=== PATIENT | female | born 1960 | race Caucasian/White ===

== ENCOUNTER 2020-01-03 09:30 | Emergency (ER) | payer OTHER ==
--- NOTE | 2020-01-03 09:52 | ED Physician Documentation ---
PD HPI CHEST PAIN - Stated complaint Stated Complaint: SOA/LEG PX - Chief complaint Chief Complaint: Cardiac - History obtained from History obtained from: Patient - History of Present Illness Timing - onset: Other (59-year-old woman for the last 3 nights has had anterior pain of the right thigh up into the groin. Today it was a little more constant and worse. She started to get worried about it and on the way here developed some substernal chest tightness radiating towards the left breast as well as shortness of breath. No leg swelling. No history of DVT or PE or cardiac problems. No recent travel.) Review of Systems Ten Systems: 10 systems reviewed and negative Constitutional: denies: Fever, Chills Throat: denies: Sore throat Cardiac: reports: Chest pain / pressure. denies: Palpitations, Pedal edema, Calf pain (just thigh) Respiratory: reports: Dyspnea. denies: Cough PD PAST MEDICAL HISTORY - Past Medical History Past Medical History: No - Allergies Allergies/Adverse Reactions: Allergies Allergy/AdvReac Type Severity Reaction Status Date / Time Penicillins Allergy Anaphylaxis Verified 01/03/20 10:09 - Social History Does the pt smoke?: No - Family History Family history: reports: Non contributory PD ED PE NORMAL - Vitals Vital signs reviewed: Yes - General General: Alert and oriented X 3, No acute distress - HEENT HEENT: PERRL, EOMI - Neck Neck: Supple, no meningeal sign, No bony TTP - Cardiac Cardiac: RRR, No murmur - Respiratory Respiratory: No respiratory distress, Clear bilaterally - Abdomen Abdomen: Non tender - Back Back: No CVA TTP, No spinal TTP - Derm Derm: Normal color, Warm and dry - Extremities Extremities: No edema, No calf tenderness / cord, Other (Right lower extremity is visibly normal, symmetric, full range of motion at the hip and knee. No pedal edema.) - Neuro Neuro: Alert and oriented X 3, Normal speech Results - Vitals Vitals: Vital Signs - 24 hr 01/03/20 01/03/20 01/03/20 09:34 09:55 10:07 Temperature 36.6 C Heart Rate 98 78 80 Respiratory 22 16 14 Rate Blood Pressure 180/123 H 193/97 H 162/93 H O2 Saturation 100 100 100 01/03/20 01/03/20 10:30 11:00 Temperature Heart Rate 79 80 Respiratory 14 14 Rate Blood Pressure 140/100 H 168/91 H O2 Saturation 100 98 Oxygen O2 Source Room air - EKG (time done) 0943 Rate: Rate (enter#) (86) Rhythm: NSR [place]: Normal Intervals: Normal ME QRS: Normal Ischemia: Normal ST segments Computer interpretation: Agree with computer - Labs Labs: Laboratory Tests 01/03/20 01/03/20 01/03/20 09:50 09:50 09:50 WBC 6.7 RBC 5.44 H Hgb 15.4 Hct 45.9 MCV 84.4 MCH 28.3 MCHC 33.6 RDW 13.5 Plt Count 313 MPV 9.7 Neut # (Auto) 4.9 Lymph # (Auto) 1.1 L Stevens # (Auto) 0.5 Eos # (Auto) 0.2 Baso # (Auto) 0.1 Absolute Nucleated RBC 0.00 Nucleated RBC % 0.0 D-Dimer Sodium 139 Potassium 3.5 Chloride 102 Carbon Dioxide 27 Anion Gap 10.0 BUN 19 Creatinine 0.6 Estimated GFR (MDRD) 102 Glucose 102 H Calcium 9.2 Total Bilirubin 1.7 H AST 35 ALT 37 Alkaline Phosphatase 70 Troponin I High Sens 2.9 Total Protein 7.8 Albumin 4.7 Globulin 3.1 Albumin/Globulin Ratio 1.5 Lipase 41 01/03/20 09:50 WBC RBC Hgb Hct MCV MCH MCHC RDW Plt Count MPV Neut # (Auto) Lymph # (Auto) Stevens # (Auto) Eos # (Auto) Baso # (Auto) Absolute Nucleated RBC Nucleated RBC % D-Dimer 219.4 Sodium Potassium Chloride Carbon Dioxide Anion Gap BUN Creatinine Estimated GFR (MDRD) Glucose Calcium Total Bilirubin AST ALT Alkaline Phosphatase Troponin I High Sens Total Protein Albumin Globulin Albumin/Globulin Ratio Lipase PD MEDICAL DECISION MAKING - ED course ED course: The anterior leg pain is atypical for DVT, and ultrasound was done and negative. D-dimer was also negative. Seems more like muscular pain and then developed some anxiety when she started thinking about blood clot. The exam is normal, no evidence of infection in the leg. Departure - Departure Disposition: 01 Home, Self Care Clinical Impression: Right leg pain, Atypical chest pain Condition: Good Record reviewed to determine appropriate education?: Yes Instructions: ED Chest Pain Atypical Unkn Cause Comments: The main focus today was to make sure there was no evidence of heart disease or blood clots, there is evidence of neither. Both your d-dimer which is a screening blood test for blood clots and the ultrasound were negative. Also your cardiac work-up was negative with a normal high-sensitivity troponin and EKG. Call your doctor to arrange a follow-up appointment, make the next available appointment. In the interim, return anytime if worse or if new symptoms develop.
[2020-01-03 10:00] LABS: BASOPHILS # (AUTO) 0.1 10^3/uL (0.0-0.1); BASOPHILS % (AUTO) 0.7 %; EOSINOPHILS # (AUTO) 0.2 10^3/uL (0.0-0.7); EOSINOPHILS % (AUTO) 2.4 %; HGB - HEMOGLOBIN 15.4 g/dL (12.0-16.0); LYMPHOCYTES # (AUTO) 1.1 10^3/uL (1.5-3.5); LYMPHOCYTES % (AUTO) 16.1 %; MEAN CORPUSCULAR HEMOGLOBIN 28.3 pg (27.0-31.0); MEAN CORPUSCULAR HGB CONC 33.6 g/dL (32.0-36.0); MEAN CORPUSCULAR VOLUME 84.4 fL (81.0-99.0); MEAN PLATELET VOLUME 9.7 fL (7.9-10.8); MONOCYTES # (AUTO) 0.5 10^3/uL (0.0-1.0); MONOCYTES % (AUTO) 7.9 %; NEUTROPHILS # (AUTO) 4.9 10^3/uL (1.5-6.6); NEUTROPHILS % (AUTO) 72.6 %; PLT - PLATELET COUNT 313 10^3/uL (130-450); RED BLOOD COUNT 5.44 10^6/uL (4.20-5.40); RED CELL DISTRIBUTION WIDTH 13.5 % (12.0-15.0); WHITE BLOOD COUNT 6.7 x10^3/uL (4.8-10.8)
--- NOTE | 2020-01-03 10:10 | XRAY Report ---
Reason: chest pain Procedure Date: 01/03/2020 Accession Number: [id number] / [id number] Procedure: XR - Chest 1 View X-Ray CPT Code: 01547 Final Report FULL RESULT: EXAM: CHEST RADIOGRAPHY EXAM DATE: 01/03/2020 10:01 AM. CLINICAL HISTORY: Chest pain and dyspnea. COMPARISON: None. TECHNIQUE: 1 view. FINDINGS: Lungs/Pleura: No focal opacities evident. No pleural effusion. No pneumothorax. Mediastinum: Within exam limitations, the cardiomediastinal contour is normal. Other: None. IMPRESSION: Normal single view chest. RADIA
[2020-01-03 10:21] LABS: ALBUMIN 4.7 g/dL (3.2-5.5); ALBUMIN/GLOBULIN RATIO 1.5 (1.0-2.2); BILIRUBIN,TOTAL 1.7 mg/dL (0.2-1.0); CALCIUM 9.2 mg/dL (8.5-10.3); CREATININE 0.6 mg/dL (0.4-1.0); TOTAL PROTEIN 7.8 g/dL (6.7-8.2)
[2020-01-03 11:04] VITALS: BP 168/91
--- NOTE | 2020-01-03 11:28 | Ultrasound Report ---
Reason: rle pain Procedure Date: 01/03/2020 Accession Number: [id number] / [id number] Procedure: US - Duplex Ext Veins Right CPT Code: Final Report FULL RESULT: EXAM: RIGHT LOWER EXTREMITY VENOUS ULTRASOUND EXAM DATE: 01/03/2020 11:11 AM. CLINICAL HISTORY: Rle pain. COMPARISON: None. TECHNIQUE: Real-time sonographic vascular imaging was performed by the satellite communications operator through the lower extremity utilizing both color-flow and Doppler spectral analysis. Multiple registered representative static images were saved for review. FINDINGS: Common Femoral Vein (CFV): Normal. CFV-GSV Junction: Normal. Profunda Femoral Vein (PFV): Normal. Femoral Vein (FV) Prox: Normal. Femoral Vein (FV) Mid: Normal. Femoral Vein (FV) Dist: Normal. Popliteal Vein: Normal. Posterior Tibial Veins: Normal. Peroneal Veins: Normal. Contralateral Side CFV: Normal. Other: None. IMPRESSION: No evidence for deep venous thrombosis. RADIA
== END 2020-01-03 11:22 | disposition home or self-care (01) ==
LOC: ED 09:30
DX: M79.651 Pain in right thigh (principal); R07.89 Other chest pain
CPT/HCPCS: 36415; 71045; 80053; 83690; 84484; 85025; 85379; 93005; 99284

== ENCOUNTER 2024-04-28 12:42 | Emergency (ER) | payer MEDICARE, OTHER ==
[2024-04-28 13:16] LABS: BASOPHILS % (AUTO) 0.5 %; EOSINOPHILS % (AUTO) 0.3 %; LYMPHOCYTES # (AUTO) 0.4 10^3/uL (1.5-3.5); LYMPHOCYTES % (AUTO) 5.9 %; MEAN CORPUSCULAR HEMOGLOBIN 28.1 pg (27.0-31.0); MEAN CORPUSCULAR HGB CONC 33.3 g/dL (32.0-36.0); MEAN CORPUSCULAR VOLUME 84.2 fL (81.0-99.0); MONOCYTES # (AUTO) 0.8 10^3/uL (0.0-1.0); MONOCYTES % (AUTO) 11.1 %; NEUTROPHILS % (AUTO) 82.1 %; PLT - PLATELET COUNT 285 10^3/uL (130-450); RED BLOOD COUNT 4.63 10^6/uL (4.20-5.40); RED CELL DISTRIBUTION WIDTH 13.2 % (12.0-15.0); WHITE BLOOD COUNT 7.3 x10^3/uL (4.8-10.8)
[2024-04-28 13:31] LABS: ALBUMIN 3.9 g/dL (3.2-5.5); ALBUMIN/GLOBULIN RATIO 1.3 (1.0-2.2); BILIRUBIN,TOTAL 1.6 mg/dL (0.2-1.0); CALCIUM 9.2 mg/dL (8.5-10.3); CREATININE 0.7 mg/dL (0.6-1.3); POTASSIUM 3.8 mmol/L (3.5-4.5)
[2024-04-28 14:09] LABS: B. PARAPERTUSSIS- RESP PCR PAN NOT DETECTED; B. PERTUSSIS- RESP PCR PANEL NOT DETECTED; C. PNEUMONIAE- RESP PCR PANEL NOT DETECTED; CORONAVIRUS 229E-RESP PCR NOT DETECTED; CORONAVIRUS HKU1-RESP PCR NOT DETECTED; CORONAVIRUS NL63-RESP PCR NOT DETECTED; CORONAVIRUS OC43-RESP PCR NOT DETECTED; HUMAN METAPNEUMOVIRUS NOT DETECTED; INFLUENZA A- RESP PCR PANEL NOT DETECTED; INFLUENZA B - RESP PCR PANEL NOT DETECTED; M. PNEUMONIAE- RESP PCR PANEL NOT DETECTED; PARAINFLUENZA VIRUS 1 NOT DETECTED; PARAINFLUENZA VIRUS 2 NOT DETECTED; PARAINFLUENZA VIRUS 3 NOT DETECTED; PARAINFLUENZA VIRUS 4 NOT DETECTED; RHINOVIRUS/ENTEROVIRUS NOT DETECTED; RSV- RESP PCR PANEL NOT DETECTED; SARS-CoV-2 -RESP PCR PANEL NOT DETECTED
--- NOTE | 2024-04-28 14:09 | ED Physician Documentation ---
History of Present Illness - Stated complaint Stated Complaint: FEVER,NAUSEA,LOSS OF APPETITE - Chief complaint Chief Complaint: General - Additonal information Additional information: Patient is a 64-year-old female presenting to the emergency department with bodyaches fevers toe 101 at home and nausea symptoms. Patient notes she has been feeling unwell since Tuesday. She has persistent nausea and bodyaches and has been taking ibuprofen without relief. She notes no significant past medical history. She does not take any medications daily. She denies any history of surgeries. She has tried to eat some broth yesterday as she is feeling slightly better but because significant upset stomach. She denies any vomiting symptoms. She has had some intermittent diarrhea but she attributes this to drinking and eating lots of fruits to help with her stomach queasiness. She notes no urinary symptoms no dysuria or hematuria. She has not seen anyone else for the symptoms. She denies any recent sick contacts. She denies any viral URI symptoms including cough sore throat runny nose. PD PAST MEDICAL HISTORY - Past Medical History Past Medical History: No Cardiovascular: None Respiratory: None Neuro: None Endocrine/Autoimmune: None GI: None NETWORK COORDINATOR: None : None HEENT: None Psych: None Musculoskeletal: None Derm: None - Past Surgical History Past Surgical History: Yes /NETWORK COORDINATOR: Hysterectomy - Present Medications Home Medications: Ambulatory Orders Medication Instructions Recorded Confirmed Nitrofurantoin [Macrobid] 1 cap PO BID #10 cap 04/28/24 Ondansetron Odt [Zofran] 4 mg TL Q6H PRN #10 tablet 04/28/24 Ondansetron Odt [Zofran] 4 mg TL Q6H PRN #10 tablet 04/28/24 - Allergies Allergies/Adverse Reactions: Allergies Allergy/AdvReac Type Severity Reaction Status Date / Time latex Allergy Rash Verified 04/28/24 13:01 Penicillins Allergy Anaphylaxis Verified 04/28/24 13:01 - Social History Does the pt smoke?: No Smoking Status: Never smoker Does the pt drink ETOH?: No Does the pt have substance abuse?: No - Immunizations Immunizations are current?: No - POLST Patient has POLST: No PD ED PE NORMAL - Vitals Vital signs reviewed: Yes - General General: Alert and oriented X 3 - HEENT HEENT: Atraumatic, PERRL - Neck Neck: Supple, no meningeal sign - Cardiac Cardiac: RRR, No murmur, No gallop, No rub - Respiratory Respiratory: No respiratory distress, Clear bilaterally - Abdomen Abdomen: Normal bowel sounds, Soft, Non tender - Derm Derm: Normal color - Extremities Extremities: No deformity - Neuro Neuro: Alert and oriented X 3 Results - Vitals Vitals: Vital Signs - 24 hr 04/28/24 04/28/24 04/28/24 12:50 15:01 17:00 Temperature 37.9 C Heart Rate 111 H 95 101 H Respiratory 18 20 24 Rate Blood Pressure 146/99 H 168/73 H 155/82 H O2 Saturation 96 97 96 Oxygen O2 Source Room air - Labs Labs: Laboratory Tests 04/28/24 04/28/24 04/28/24 13:06 13:10 13:10 WBC 7.3 RBC 4.63 Hgb 13.0 Hct 39.0 MCV 84.2 MCH 28.1 MCHC 33.3 RDW 13.2 Plt Count 285 MPV 10.0 Neut # (Auto) 6.0 Lymph # (Auto) 0.4 L [place] # (Auto) 0.8 Eos # (Auto) 0.0 Baso # (Auto) 0.0 Absolute Nucleated RBC 0.00 Nucleated RBC % 0.0 Sodium 131 L Potassium 3.8 Chloride 95 L Carbon Dioxide 27 Anion Gap 9.0 BUN 16 Creatinine 0.7 Estimated GFR (MDRD) 84 L Glucose 116 H Calcium 9.2 Total Bilirubin 1.6 H AST 177 H ALT 159 H Alkaline Phosphatase 182 H Total Protein 7.0 Albumin 3.9 Globulin 3.1 Albumin/Globulin Ratio 1.3 Lipase 34 Urine Color Urine Clarity Urine pH Ur Specific [place] Urine Protein Urine Glucose (UA) Urine Ketones Urine Occult Blood Urine Nitrite Urine Bilirubin Urine Urobilinogen Ur Leukocyte Esterase Urine RBC Urine WBC Ur Squamous Epith Cells Urine Bacteria Ur Microscopic Review Urine Culture Comments Nasal Adenovirus (PCR) NOT DETECTED Nasal B. parapertussis DNA (PCR) NOT DETECTED Nasal Coronavir 229E PCR NOT DETECTED Nasal Coronavir HKU1 PCR NOT DETECTED Nasal Coronavir NL63 PCR NOT DETECTED Nasal Coronavir OC43 PCR NOT DETECTED Nasal Enterovir/Rhinovir PCR NOT DETECTED Nasal Influenza B PCR NOT DETECTED Nasal Influenza A PCR NOT DETECTED Nasal Parainfluen 1 PCR NOT DETECTED Nasal Parainfluen 2 PCR NOT DETECTED Nasal Parainfluen 3 PCR NOT DETECTED Nasal Parainfluen 4 PCR NOT DETECTED Nasal RSV (PCR) NOT DETECTED Nasal B.pertussis DNA PCR NOT DETECTED Nasal C.pneumoniae (PCR) NOT DETECTED [place] Human Metapneumo PCR NOT DETECTED Nasal M.pneumoniae (PCR) NOT DETECTED Nasal SARS-CoV-2 (PCR) NOT DETECTED 04/28/24 15:25 WBC RBC Hgb Hct MCV MCH MCHC RDW Plt Count MPV Neut # (Auto) Lymph # (Auto) [place] # (Auto) Eos # (Auto) Baso # (Auto) Absolute Nucleated RBC Nucleated RBC % Sodium Potassium Chloride Carbon Dioxide Anion Gap BUN Creatinine Estimated GFR (MDRD) Glucose Calcium Total Bilirubin AST ALT Alkaline Phosphatase Total Protein Albumin Globulin Albumin/Globulin Ratio Lipase Urine Color YELLOW Urine Clarity HAZY Urine pH 6.5 Ur Specific [place] 1.015 Urine Protein TRACE Urine Glucose (UA) NEGATIVE Urine Ketones 40 H Urine Occult Blood TRACE-INTA Urine Nitrite NEGATIVE Urine Bilirubin NEGATIVE Urine Urobilinogen 4 H Ur Leukocyte Esterase SMALL H Urine RBC 0-5 Urine WBC 6-10 H Ur Squamous Epith Cells FEW Squamous Urine Bacteria Few Ur Microscopic Review INDICATED Urine Culture Comments INDICATED Nasal Adenovirus (PCR) Nasal B. parapertussis DNA (PCR) Nasal Coronavir 229E PCR Nasal Coronavir HKU1 PCR Nasal Coronavir NL63 PCR Nasal Coronavir OC43 PCR Nasal Enterovir/Rhinovir PCR Nasal Influenza B PCR Nasal Influenza A PCR Nasal Parainfluen 1 PCR Nasal Parainfluen 2 PCR Nasal Parainfluen 3 PCR Nasal Parainfluen 4 PCR Nasal RSV (PCR) Nasal B.pertussis DNA PCR Nasal C.pneumoniae (PCR) Moody Human Metapneumo PCR Nasal M.pneumoniae (PCR) Nasal SARS-CoV-2 (PCR) PD Medical Decision Making - ED course Complexity details: reviewed old records, reviewed results ED course: Patient is a 64-year-old female who presents to the emergency department with nausea body aches fevers that been going on since Tuesday. She has had trouble eating anything as it was making her stomach upset but denies any abdominal pain or vomiting. She has tried ibuprofen with no relief for her symptoms. No recent sick contacts. She has no history of abdominal surgeries. No urinary symptoms. She notes mild intermittent diarrhea but no other symptoms at this time. Vitals on arrival show patient is febrile and tachycardic. Physical exam shows soft abdomen without rebound or guarding. Normal cardiac sounds on auscultation. Labs obtained here in the emergency department show leukocytosis with elevation in LFTs in the 150s. Slightly elevated bilirubin but patient's baseline from 2019 is 1.5 so no significant increase. Given elevation in LFTs will obtain abdominal ultrasound as symptoms could be secondary to cholecystitis versus cholydocolithiasis. Ultrasound of gallbladder is negative showing no acute signs of cholecystitis. Patient fluids given here in the emergency department she is feeling slightly better. Tachycardia and temperature resolved here in emergency department. Patient feeling significantly better after fluids and Zofran given. Patient tolerated p.o. well here in emergency department.Patient instructed symptoms most likely secondary to UTI versus viral URI. She should monitor for any persistent nausea vomiting she should drink lots of fluids when she returns home and follow-up with PCP in outpatient setting. Departure - Departure Disposition: , Self Care Clinical Impression: UTI (urinary tract infection), Fever, Nausea & vomiting Condition: Good Instructions: ED UTI Cystitis Female, ED Fever Unconf Cause Prescriptions: Nitrofurantoin [Macrobid] 1 cap PO BID #10 cap Ondansetron Odt [Zofran] 4 mg TL Q6H PRN #10 tablet PRN Reason: Nausea / Vomiting Ondansetron Odt [Zofran] 4 mg TL Q6H PRN #10 tablet PRN Reason: Nausea / Vomiting Comments: Call your doctor to arrange a follow-up appointment, make the next available appointment. In the interim, return anytime if worse or if new symptoms develop.We will culture your urine, the results should be done in 48-72 hours. If an antibiotic change is necessary we will call you. Return if worse in the meantime, especially if you develop increasing flank pain, fevers, or cannot keep down the medication.You should return with any fevers worsening pain persistent nausea vomiting. Please take antibiotics as prescribed. Forms: PCP List
[2024-04-28] MEDS: ACETAMINOPHEN 500 MG TABLET PO STA (14:19)
[2024-04-28] MEDS: SODIUM CHLORIDE 0.9% 1,000 ML IV STA (14:19)
--- NOTE | 2024-04-28 15:42 | Ultrasound Report ---
PROCEDURE: Abdomen Limited INDICATIONS: RUQ ultrasound abdomen TECHNIQUE: Ultrasound of the abdominal right upper quadrant was obtained with image documentation. COMPARISONS: None. FINDINGS: Liver: Normal is size and echotexture. No evidence of focal mass lesion. No intra hepatic biliary ductal dilatation. Multiple hepatic cysts measuring up to 2.3 cm. Gallbladder: Sonolucent without cholelithiasis. No gallbladder wall thickening. No pericholecystic fluid or Bahena's sign. Common Bile Duct: 2 mm. Pancreas: Unremarkable as visualized. IMPRESSION: Multiple hepatic cysts. Otherwise unremarkable right upper quadrant ultrasound Reviewed by: Isaac Chinchilla MD on 04/28/2024 2:40 PM AKDT Approved by: Isaac Chinchilla MD on 04/28/2024 2:40 PM AKDT Station ID: [id number]
[2024-04-28 15:43] LABS: BILIRUBIN,URINE NEGATIVE (NEGATIVE); GLUCOSE, URINE (UA) NEGATIVE (NEGATIVE); KETONES,URINE (UA) 40 mg/dL (NEGATIVE); LEUKOCYTE ESTERASE, URINE SMALL (NEGATIVE); NITRITE,URINE NEGATIVE (NEGATIVE); OCCULT BLOOD,URINE TRACE-INTA (NEGATIVE); PH,URINE 6.5 PH (5.0-7.5); PROTEIN,URINE TRACE mg/dL (NEGATIVE); UROBILINOGEN,URINE 4 E.U./dL (NORMAL)
[2024-04-28 15:46] LABS: CLARITY,URINE HAZY (CLEAR)
[2024-04-28 15:56] LABS: RBC,URINE 0-5 /HPF (0-5)
[2024-04-28 15:57] LABS: BACTERIA,URINE Few /HPF (None Seen); SQUAMOUS EPITHELIAL CELL,UR FEW Squamous (<= Few)
[2024-04-28] MEDS: ONDANSETRON ODT 4 MG TABLET TL STA (16:52)
[2024-04-28] MEDS: NITROFURANTOIN MACRO 100 MG CAPSULE PO STA (17:43)
[2024-04-28 18:07] VITALS: BP 145/75; O2SAT 94
== END 2024-04-28 18:06 | disposition home or self-care (01) ==
LOC: ED 12:42
DX: N39.0 Urinary tract infection, site not specified (principal); R50.9 Fever, unspecified; R11.2 Nausea with vomiting, unspecified
CPT/HCPCS: 36415; 76705; 80053; 81001; 83690; 85025; 87086; 87633; 96360; 99284; A9270; Q0162; 81003